=== PATIENT | male | born 1975 | race Two or more races ===

== ENCOUNTER 2023-05-24 08:36 | Day surgery (SDC) | payer MEDICAID ==
[~2023-05-24 08:36] MED LIST: Midazolam 1 MG/ML 2 ML SDV ONE; Propofol 200 MG/20 ML SDV ONE; fentaNYL 50 MCG/ML SDV ONE
[2023-05-24] MEDS ORDERED: Sodium Chloride 0.9% 1,000 ML IV SCH (09:30)
== END 2023-05-24 12:10 | disposition home or self-care (01) ==
LOC: JP.SDS 08:36
PROVIDERS: ATTEND Surgery
DX: Z12.11 Encounter for screening for malignant neoplasm of colon (principal); K57.30 Diverticulosis of large intestine without perforation or abscess without bleeding; K64.8 Other hemorrhoids
CPT/HCPCS: 45398; J2250; J2704; J3010; J7030